=== PATIENT | male | born 1945 ===

== ENCOUNTER 2025-03-05 10:00 | Day surgery (SDC) | payer OTHER ==
[2025-02-27 09:51] LABS: BASO % 0.5 % (0.1-1.2); EOS # 0.40 (0.04-0.54); EOS % 6.1 % (0.7-7.0); LYMPH # 1.37 (1.18-3.74); LYMPH % 20.8 % (19.3-53.1); MEAN PLATELET VOLUME 10.10 fl (9.4-12.4); MONO # 1.12 (0.24-0.82); NEUT # 3.64 (1.56-6.13); NEUT % 55.3 % (34.0-71.1); RED CELL DISTRIBUTION WIDTH 12.6 % (11.6-14.4)
[2025-02-27 10:01] LABS: URINE APPEARANCE Clear; URINE BILIRRUBIN Negative (NEGATIVE); URINE BLOOD Negative; URINE COLOR Yellow; URINE GLUCOSE Negative (NEGATIVE); URINE KETONE Negative (NEGATIVE); URINE LEUKOCYTE Negative; URINE NITRATE Negative; URINE PROTEIN 30 (NEGATIVE); URINE UROBILINOGEN 0.2 E.U./dl
[2025-02-27 10:05] LABS: URINE RBC 3.9 uL (0.0-20.8)
[2025-02-27 10:09] LABS: URINE BACTERIA 0 uL (0.0-1933); URINE CAST 0.00 uL (0.0-1.40); URINE EPITHELIAL CELLS 0.1 uL (0.0-38.8); URINE WBC 0.4 uL (0.0-23.2)
[2025-02-27 10:20] LABS: MONO % 17.0 % (4.7-12.5)
[2025-02-27 10:27] LABS: INR 0.98
[2025-02-27 10:47] LABS: BUN CREA RATIO 16.0 (7.0-25.0); CREATININE SERUM 2.27 mg/dL (0.70-1.30); GFR 27.92; GLUCOSE FASTING 77.0 mg/dL (65-100); OSMOLALITY SERUM 292.0 MOSM/KG (275-295)
[2025-02-27 12:32] VITALS: BP 120/60
[~2025-03-05] VITALS: Ht 167.6 cm; Wt 78.0 kg
[~2025-03-05 10:00] MED LIST: AUTOJECT 21 EACH; CLONAZEPAM2 MG PO; COZAAR100 MG PO; GABAPENTIN300 MG; GLIPIZIDE XL2.5 MG; NEURONTIN800 MG PO
[2025-03-05] MEDS ORDERED: CEFAZOLIN SODIUM 1,000 MG VIAL ONE (11:14)
== END 2025-03-05 15:20 | disposition home or self-care (01) ==
LOC: CIR.AMB 10:00
PROVIDERS: ATTEND Surgery Surgery of the Hand
DX: M65.842 Other synovitis and tenosynovitis, left hand (principal); M67.844 Other specified disorders of tendon, left hand